=== PATIENT | male | born 1975 | race Caucasian/White ===

== ENCOUNTER 2019-12-26 19:31 | Inpatient (IN) | payer OTHER ==
[~2019-12-26] VITALS: Ht 180.3 cm; Wt 78.0 kg
--- NOTE | 2019-12-26 19:41 | NUR ---
PT BIBRA 38 FROM [facility] TAIWO C/O EPIGASTRIC PAIN X1 DAY W/ "SPITTING BLOOD". +VOMITING. PT AAOX4, VSS,RESPIRATIONS EVEN AND UNLABORED ON RA W/ NAD NOTED. PT CONNECTED TO THE MONITOR AND POX
--- NOTE | 2019-12-26 19:49 | NUR ---
RADIOLOGY AT BEDSIDE
[2019-12-26] MEDS ORDERED: IV NS 0.9% 1,000 ML BAG IV ONE (20:00)
[2019-12-26] MEDS ORDERED: ONDANSETRON HCL/PF 4 MG/2 ML VIAL IV ONE ×2 (20:00→22:30)
[2019-12-26] MEDS ORDERED: ONDANSETRON HCL/PF 4 MG/2 ML VIAL ONE ×2 (20:03→22:11)
--- NOTE | 2019-12-26 20:06 | NUR ---
BLOOD COLLECTED AND SENT TO LAB
[2019-12-26 20:58] LABS: BASOPHILS % (AUTO) 0.6 % (0.0-2.0); EOSINOPHILS % (AUTO) 6.5 % (0.0-6.0); HEMATOCRIT 46 % (39-51); HEMOGLOBIN 15.3 g/dL (13.5-17.5); LYMPHOCYTES # (AUTO) 1.8 /CMM (0.8-4.8); LYMPHOCYTES % (AUTO) 27.8 % (20.0-44.0); MEAN CORPUSCULAR HGB CONC 34 g/dl (31.0-36.0); MEAN CORPUSCULAR VOLUME 101 fL (80-96); MONOCYTES # (AUTO) 1.2 /CMM (0.1-1.30); MONOCYTES % (AUTO) 17.7 % (2.0-12.0); NEUTROPHILS # (AUTO) 3.1 /CMM (1.8-8.9); NEUTROPHILS % (AUTO) 47.4 % (43.0-81.0); PLATELET COUNT (AUTO) 178 /CMM (150-450); RED BLOOD CELL COUNT(AUTO) 4.52 MIL/uL (4.5-6.0); WHITE BLOOD COUNT (AUTO) 6.6 K/uL (4.3-11.0)
[2019-12-26 21:07] LABS: ALBUMIN 3.7 g/dL (3.4-5.0); BILIRUBIN,DIRECT 0.2 mg/dL (0.0-0.2); BILIRUBIN,TOTAL 0.3 mg/dL (0.2-1.0); CALCIUM, SERUM 9.2 mg/dL (8.5-10.1); CREATININE 0.9 mg/dL (0.6-1.3); POTASSIUM 4.1 mmol/L (3.5-5.1); TOTAL PROTEIN, SERUM 7.5 g/dL (6.4-8.2)
--- NOTE | 2019-12-26 21:46 | NUR ---
PT TAKEN TO RADIOLOGY FOR CT
--- NOTE | 2019-12-26 21:47 | NUR ---
PT RETURNED FROM CT
[2019-12-26] MEDS ORDERED: MORPHINE SULFATE INJ 4 MG/ML DISP.SYRIN ONE (22:11)
[2019-12-26] MEDS ORDERED: MORPHINE SULFATE INJ 2 MG/ML DISP.SYRIN IV ONE (22:30)
[2019-12-26 23:21] LABS: EOSINOPHILS % (MANUAL) 7 % (0-4); LYMPHOCYTES % (MANUAL) 28 % (16-48); MONOCYTES % (MANUAL) 14 % (0-11.0); NEUTROPHILS % (MANUAL) 51 (42-76)
[2019-12-26] MEDS ORDERED: PANTOPRAZOLE 40 MG VIAL IV ONE (23:30)
--- NOTE | 2019-12-26 23:37 | NUR ---
COVID SWAB COLLECTED AND SENT TO LAB
[2019-12-27] MEDS ORDERED: MORPHINE SULFATE INJ 4 MG/ML DISP.SYRIN ONE (00:04)
--- NOTE | 2019-12-27 00:10 | NUR ---
CALLED NURSING SUP FOR BED
[2019-12-27] MEDS ORDERED: MORPHINE SULFATE INJ 2 MG/ML DISP.SYRIN IV ONE (00:30)
--- NOTE | 2019-12-27 00:41 | NUR ---
SPOKE WITH DOYLE FROM [employer], VERBAL AUTH FOR PT TO BE ADMITTED TO [facility]
--- NOTE | 2019-12-27 00:43 | NUR ---
ATTEMPTED TO CONTACT DR. DIAMOND (GI NATIONAL ACCOUNT MANAGER) LEFT MESSAGE TO RETURN CALL
--- NOTE | 2019-12-27 01:09 | NUR ---
CALLED [facility] FOR PANEL PAGING AGAIN.
--- NOTE | 2019-12-27 01:10 | NUR ---
ATTEMPTED TO CONTACT DR. DIAMOND FOR CONSULT. LEFT MESSAGE TO RETURN CALL
--- NOTE | 2019-12-27 01:50 | NUR ---
DR. BARBOSA SPEAKING WITH DR. ZENDEJAS REGARDING ADMISSION
[2019-12-27] MEDS ORDERED: OLAN5TAB3 PO (02:22)
[2019-12-27] MEDS ORDERED: MIRT15TA PO (02:23)
[2019-12-27] MEDS ORDERED: SERT100T PO (02:23)
--- NOTE | 2019-12-27 02:37 | NUR ---
REC'D NEG COVID RESULTS. AND SINDI CHEN MADE AWARE
--- NOTE | 2019-12-27 02:40 | NUR ---
BED ASSIGNMENT 321-2
--- NOTE | 2019-12-27 02:46 | NUR ---
REPORT GIVEN TO BLAIR MATIAS FOR RUDDY
--- NOTE | 2019-12-27 03:17 | NUR ---
PT TRANSFERRED TO ROOM IN STABLE CONDITION
[2019-12-27 03:40] VITALS: BP 129/72
[2019-12-27] MEDS ORDERED: ONDANSETRON HCL/PF 4 MG/2 ML VIAL IVP PRN (04:00)
[2019-12-27] MEDS: MORPHINE SULFATE INJ 2 MG/ML DISP.SYRIN IV PRN ×4 (04:36→20:54)
[2019-12-27] MEDS: IV D5/ 0.9% NACL 1,000 ML IV PRN ×2 (04:43→21:04)
--- NOTE | 2019-12-27 04:43 | NUR ---
MS/RN NOTE Patient c/o abdominal pain level 9, aching. Administered PRN dilaudid as ordered. VSS. Will continue to monitor.
[2019-12-27] MEDS ORDERED: Thiamine 100 MG/ML VIAL ONE (05:18)
[2019-12-27] MEDS ORDERED: Folic acid 1 MG/0.2 ML VIAL ONE (05:19)
[2019-12-27] MEDS: Thiamine 100 MG in IV D5W 50 ML IV SCH (05:51)
[2019-12-27 06:29] VITALS: BP 129/72
--- NOTE | 2019-12-27 07:13 | NUR ---
ms echocardiography radiology technologist closing notes pt awake and alert watching tv at this time. pain subside after Morphine given shiv IVP. no N?V noted at this time. IVf still infusing at 125ml/hr on his right upper arm. not in any discomfort at this time. no N/V as well. all due meds given and all needs met. kept him warm and comfortable at all times. will endorse to am nurse for continuity of care. place call light at reach.
--- NOTE | 2019-12-27 07:30 | NUR ---
RN OPENING NOTE Received patient in bed, A/Ox4, ambulatory, denies pain or discomfort at this moment, on room air, SPO2 is 99%, no SOB or distress noted, Bruises bilaterally noted on arms, IV line noted on Right upper arm, intact and patent, running D5NS @ 125 cc/hr, Safety measures in place, call light in reach, bed in lowest position, will cont to monitor
[2019-12-27 08:00] VITALS: BP 108/77
[2019-12-27] MEDS ORDERED: PANTOPRAZOLE 40 MG VIAL IV SCH (09:00)
--- NOTE | 2019-12-27 09:35 | NUR ---
OK to give Zoloft meds per FACING CUTTING MACHINE OPERATOR Sneha
[2019-12-27] MEDS: SERTRALINE HCL 50 MG TABLET PO SCH (09:40)
[2019-12-27] MEDS: Folic acid 1 MG in IV D5W 50 ML IV SCH (09:46)
--- NOTE | 2019-12-27 11:00 | NUR ---
Shasha Hoover at bed site
--- NOTE | 2019-12-27 14:03 | NUR ---
IV line infiltrated,assessed and removed
--- NOTE | 2019-12-27 14:15 | NUR ---
MULTIPLE ATTEMPTS TO START NEW LINE DIDN'T SUCCEED, WILL INFORM HOSPITALIST AND WEB OPERATIONS MANAGER
--- NOTE | 2019-12-27 15:26 | NUR ---
HERB MIDLINE INSERTED G 18, INTACT AND PATENT
--- NOTE | 2019-12-27 15:43 | NUR ---
PATIENT COMPLAINS OF SEVERE PAIN IN UPPER ABDOMINAL AREA /, MOANING, GASPING AIR, WILL ADMINISTER PRN PAIN MED
[2019-12-27 16:00] VITALS: BP 98/61
[2019-12-27] MEDS: MIRTAZAPINE 15 MG TABLET PO SCH (17:31)
[2019-12-27] MEDS: DOCUSATE SODIUM 100 MG CAPSULE PO SCH (17:31)
--- NOTE | 2019-12-27 18:25 | NUR ---
PER DR MARKHAM OK TO HAVE CLEAR LIQUIDS FOR DINNER, NPO AFTER MIDNIGHT
[2019-12-27] MEDS: OLANZAPINE 5 MG TABLET PO SCH (18:30)
--- NOTE | 2019-12-27 19:02 | NUR ---
RN CLOSING NOTES PATIENT REMAINS IN BED, A/OX4, TOLERATING TREATMENT WELL, CURRENTLY ON CLEAR LIQUID DIET, WILL BE NPO AFTER MIDNIGHT, SAFETY MEASURES IN PLACE,BED IN LOWEST POSITION, HOB ELEVATED, CALL LIGHT IN REACH, WILL ENDORSE TO PM RN FOR RUDDY
[2019-12-27 20:00] VITALS: BP 98/56
[2019-12-27] MEDS: PANTOPRAZOLE 40 MG VIAL IV SCH (20:45)
--- NOTE | 2019-12-27 21:14 | NUR ---
MS/RN NOTE Reviewed consent form for procedure and moderate sedation. Signed by patient. Documents placed in chart. Patient c/o of pain level 9 aching and throbbing in the abdomen. Administered PRN dilaudid as ordered. VSS. Will continue to monitor.
--- NOTE | 2019-12-27 22:21 | NUR ---
MS/RN NOTE Patient developed redness and pruritis after 1 completed dose of vancomycin. IV infusion stopped. No SOB or respiratory distress noted. VS: BP 124/80 T98.9 P93 R17 [id number] Dr. Rowell notified. Verbal order received: 1 dose 15mg benadryl and continue vancomycin. Order read back and confirmed by hospitalist. Will continue to monitor. Addendum: 12/27/19 at 2225 by ODIN BELLAMY RN Wrong patient. Please disregard this note.
--- NOTE | 2019-12-27 22:52 | NUR ---
MS/RN OPENING NOTE Patient awake in bed, A/O x4, pleasant. Ambulatory with BRP. Breathing even, clear, unlabored on room air. No signs of acute distress or SOB. Skin warm, pink, dry, appropriate for ethnicity. Bruising noted on RFA from IV insertion, per patient. Abdomen round, soft, non-distended. Bowel sounds normoactive. Patient is NPO for EGD. IV site TONY 22g running D5NS @125 ml/hr. No redness or infiltration. Patient is continent. Bed in low position, wheels locked, side rails up x2, call light within reach.
[2019-12-27 23:41] VITALS: BP 98/56
[2019-12-28] MEDS: MORPHINE SULFATE INJ 2 MG/ML DISP.SYRIN IV PRN ×4 (02:44→21:21)
--- NOTE | 2019-12-28 02:55 | NUR ---
MS/RN NOTE Patient c/o of abdominal pain level 10. Administered PRN dilaudid as ordered. VSS. Will continue to monitor.
[2019-12-28] MEDS: IV D5/ 0.9% NACL 1,000 ML IV PRN ×2 (04:09→16:16)
--- NOTE | 2019-12-28 06:01 | NUR ---
MS/RN CLOSING NOTE Patient asleep in bed, A/O x4, pleasant. Ambulatory. Breathing even, clear, unlabored on room air. No signs of acute distress or SOB. Skin warm, pink, dry, appropriate for ethnicity. Patient is NPO for EGD. Patient void via urinal 1050 ml of clear yellow urine. No bowel movement. IV site TONY 22g running D5NS @125 ml/hr. No redness or infiltration. All medications administered as ordered. Bed in low position, wheels locked, side rails up x2, call light within reach. Will endorse to oncoming nurse
[2019-12-28 07:10] LABS: BASOPHILS # (AUTO) 0.1 /CMM (0.0-0.2); BASOPHILS % (AUTO) 0.9 % (0.0-2.0); EOSINOPHILS % (AUTO) 12.5 % (0.0-6.0); HEMATOCRIT 44 % (39-51); HEMOGLOBIN 14.4 g/dL (13.5-17.5); LYMPHOCYTES # (AUTO) 1.8 /CMM (0.8-4.8); LYMPHOCYTES % (AUTO) 30.2 % (20.0-44.0); MEAN CORPUSCULAR HGB CONC 33 g/dl (31.0-36.0); MEAN CORPUSCULAR VOLUME 101 fL (80-96); MONOCYTES # (AUTO) 0.9 /CMM (0.1-1.30); MONOCYTES % (AUTO) 15.8 % (2.0-12.0); NEUTROPHILS # (AUTO) 2.4 /CMM (1.8-8.9); NEUTROPHILS % (AUTO) 40.6 % (43.0-81.0); PLATELET COUNT (AUTO) 176 /CMM (150-450); RED BLOOD CELL COUNT(AUTO) 4.38 MIL/uL (4.5-6.0)
--- NOTE | 2019-12-28 07:30 | NUR ---
RN OPENING NOTES Received patient ,present in bed, sleeping, A/Ox4, on room air, tolerating well, SPO2 is 98%, report pain in abdominal are 7/10,on room aair, SPO2 is 98%, no SOB or resp distress noted, Med-surg status, NPO diet except meds,patient will undergo an EGD procedure today. Mid-line present on TONY , running D%NS @ 125/hr, intact and patent, patient is tolerating well. Patient is ambulatory to bathroom and using urinal at bed site. Safety measures in place, call .light in reach, bed in lowest position, HOB elevated, will cont to monitor
[2019-12-28 07:51] LABS: THYROID STIMULATING HORMONE 1.052 uIU/mL (0.358-3.74)
[2019-12-28 08:00] VITALS: BP_SYST 130; BP_SYST 81; BP_DIAS 51; BP_DIAS 77
[2019-12-28 08:04] LABS: ALBUMIN 2.9 g/dL (3.4-5.0); BILIRUBIN,TOTAL 0.8 mg/dL (0.2-1.0); CALCIUM, SERUM 7.9 mg/dL (8.5-10.1); CREATININE 0.8 mg/dL (0.6-1.3); MAGNESIUM 2.1 mg/dL (1.8-2.4); PHOSPHORUS 2.6 mg/dL (2.5-4.9); POTASSIUM 3.6 mmol/L (3.5-5.1); TOTAL PROTEIN, SERUM 5.9 g/dL (6.4-8.2)
[2019-12-28] MEDS: Thiamine 100 MG in IV D5W 50 ML IV SCH (08:15)
--- NOTE | 2019-12-28 08:15 | NUR ---
Patient complains of severe abdominal pain, moaning, states his level is 8.5/10, will administer PRN pain mediation
--- NOTE | 2019-12-28 08:20 | NUR ---
Patient BP is 81/51, will hold PRN Morphine
[2019-12-28] MEDS: SERTRALINE HCL 50 MG TABLET PO SCH (08:50)
[2019-12-28] MEDS: PANTOPRAZOLE 40 MG VIAL IV SCH (08:50)
[2019-12-28] MEDS: DOCUSATE SODIUM 100 MG CAPSULE PO SCH ×2 (08:50→16:45)
--- NOTE | 2019-12-28 09:07 | NUR ---
Rechecked BP : 133/71 will administer PRN Pain Med per patient pain level 8.5/10 and continues request
[2019-12-28] MEDS: Folic acid 1 MG in IV D5W 50 ML IV SCH (09:13)
[2019-12-28 09:24] LABS: EOSINOPHILS % (MANUAL) 14 % (0-4); LYMPHOCYTES % (MANUAL) 26 % (16-48); MONOCYTES % (MANUAL) 14 % (0-11.0); NEUTROPHILS % (MANUAL) 46 (42-76)
[2019-12-28] MEDS ORDERED: FAMOTIDINE/PF INJ 20 MG/2 ML VIAL IV ONE (10:49)
--- NOTE | 2019-12-28 10:49 | NUR ---
Patient went to OR for EGD procedure, consent in place, pre op paperwork completed
--- NOTE | 2019-12-28 12:00 | NUR ---
Patient is back from OR, stable, per Dr Bella resume medication and start regular diet
--- NOTE | 2019-12-28 15:31 | NUR ---
Patient complains of severe pain in abdominal area of level 8/10, asking for pain medication, will administer PRN med
[2019-12-28 16:00] VITALS: BP 132/80
--- NOTE | 2019-12-28 16:45 | NUR ---
Patient refused Colace saying its causing "his stool to be very liquid"
--- NOTE | 2019-12-28 17:00 | NUR ---
lab called, find MRSA in pt's nostrils , will notify PHYSICAL THERAPY TECHNICIAN
[2019-12-28] MEDS: MIRTAZAPINE 15 MG TABLET PO SCH (17:45)
[2019-12-28] MEDS: OLANZAPINE 5 MG TABLET PO SCH (17:45)
--- NOTE | 2019-12-28 19:02 | NUR ---
RN CLOSING NOTES PATIENT REMAINS IN BED, A/OX4, TOLERATING TREATMENT WELL, CURRENTLY ON REGULAR DIET, REQUESTED ADDITIONAL SANDWICH, GOOD APPETITE, ALL MEDICATIONS GIVEN, COMFORT NEEDS ATTENDED , SAFETY MEASURES IN PLACE,BED IN LOWEST POSITION, HOB ELEVATED, CALL LIGHT IN REACH, WILL ENDORSE TO PM RN FOR RUDDY
--- NOTE | 2019-12-28 19:25 | NUR ---
RN OPENING NOTES Received patient A/O x4, awake on bed, on RA. No complaints made at this time. Kept on bed clean, dry and comfortable. On fall precautions. Call light within easy reach. Will continue to monitor accordingly.
[2019-12-28 20:00] VITALS: BP 133/78
[2019-12-28] MEDS ORDERED: FAMOTIDINE/PF INJ 20 MG/2 ML VIAL IV SCH (21:00)
[2019-12-28] MEDS: MUPIROCIN OINT 2% 22 GM TUBE NS SCH (21:17)
[2019-12-28] MEDS: ZOLPIDEM TARTRATE 5 MG TABLET PO PRN (22:10)
[2019-12-29] MEDS: IV D5/ 0.9% NACL 1,000 ML IV PRN ×3 (00:52→18:05)
[2019-12-29] MEDS: MORPHINE SULFATE INJ 2 MG/ML DISP.SYRIN IV PRN ×5 (05:30→22:48)
--- NOTE | 2019-12-29 06:35 | NUR ---
RN CLOSING NOTES Pt asleep on bed, on RA. No new complaints made. Medicated for insomnia, noted able to sleep within the shift. Pain managed with PRN medications as ordered. All nursing needs attended, due meds given as ordered. Kept on bed clean, dry and comfortable. Endorsed.
[2019-12-29 06:54] LABS: BASOPHILS # (AUTO) 0.1 /CMM (0.0-0.2); BASOPHILS % (AUTO) 1.4 % (0.0-2.0); EOSINOPHILS % (AUTO) 11.4 % (0.0-6.0); HEMATOCRIT 41 % (39-51); HEMOGLOBIN 13.5 g/dL (13.5-17.5); LYMPHOCYTES # (AUTO) 1.7 /CMM (0.8-4.8); LYMPHOCYTES % (AUTO) 23.9 % (20.0-44.0); MEAN CORPUSCULAR HGB CONC 33 g/dl (31.0-36.0); MEAN CORPUSCULAR VOLUME 102 fL (80-96); MONOCYTES # (AUTO) 1.2 /CMM (0.1-1.30); NEUTROPHILS # (AUTO) 3.3 /CMM (1.8-8.9); NEUTROPHILS % (AUTO) 46.3 % (43.0-81.0); PLATELET COUNT (AUTO) 185 /CMM (150-450); WHITE BLOOD COUNT (AUTO) 7.2 K/uL (4.3-11.0)
[2019-12-29 08:00] VITALS: BP 102/73
--- NOTE | 2019-12-29 08:13 | NUR ---
MS/RN OPENING NOTES RECEIVED PATIENT ON BED. ALERT AND ORIENTED X 4. PATIENT IN NO APPARENT RESPIRATORY DISTRESS NOTED. PATIENT NO COMPLAINED OF PAIN AT THIS TIME. WILL CONTINUE TO MONITOR.
[2019-12-29 08:41] LABS: ALBUMIN 2.7 g/dL (3.4-5.0); BILIRUBIN,TOTAL 0.2 mg/dL (0.2-1.0); CREATININE 0.8 mg/dL (0.6-1.3); POTASSIUM 3.8 mmol/L (3.5-5.1); TOTAL PROTEIN, SERUM 5.7 g/dL (6.4-8.2)
[2019-12-29] MEDS: FAMOTIDINE (20 MG) 20 MG TABLET PO SCH ×3 (09:07→21:02)
[2019-12-29] MEDS: SERTRALINE HCL 50 MG TABLET PO SCH (09:07)
[2019-12-29] MEDS: DOCUSATE SODIUM 100 MG CAPSULE PO SCH ×2 (09:07→17:00)
[2019-12-29] MEDS: THIAMINE HCL 100 MG TABLET PO SCH (09:07)
[2019-12-29] MEDS: FOLIC ACID 1 MG TABLET PO SCH (09:07)
[2019-12-29] MEDS: MUPIROCIN OINT 2% 22 GM TUBE NS SCH ×2 (09:08→21:03)
[2019-12-29] MEDS: CALCIUM CARB 600MG /VIT D 1 EACH TABLET PO SCH (12:44)
[2019-12-29 13:56] LABS: EOSINOPHILS % (MANUAL) 12 % (0-4); LYMPHOCYTES % (MANUAL) 26 % (16-48); MONOCYTES % (MANUAL) 18 % (0-11.0); NEUTROPHILS % (MANUAL) 44 (42-76)
[2019-12-29 16:00] VITALS: BP 121/80
[2019-12-29] MEDS: MIRTAZAPINE 15 MG TABLET PO SCH (17:18)
[2019-12-29] MEDS: SUCRALFATE 1 G/10 ML UDC GT SCH ×3 (17:18→21:08)
[2019-12-29] MEDS: OLANZAPINE 5 MG TABLET PO SCH (17:19)
--- NOTE | 2019-12-29 19:20 | NUR ---
MS/RN CLOSING NOTES PATIENT IS ON BED, ALERT AND ORIENTED X4. PATIENT DENIES PAIN AT THIS TIME. PATIENT IN NO APPARENT RESPIRATORY DISTRESS NOTED. IV ACCESS AT RIGHT UPPER ARM MIDLINE WITH IV FLUID OF D5NS 1L AT 125ML//HR ON AND INFUSING WELL. SEEN AN EXAMINED BY MD WITH ORDERS MADE AND CARRIED OUT. SAFETY PRECAUTIONS WAS IN PLACED. BED IN LOWEST POSITION. SIDE RAILS UP X2. ALL NEEDS WAS ATTENDED. CALL LIGHTS WITHIN REACH. WILL ENDORSED TO LEAD MOBILE DEVELOPER FOR RUDDY.
--- NOTE | 2019-12-29 19:50 | NUR ---
MS RN OPENING NOTES PATIENT RECEIVED RESTING IN BED COMFORTABLY; A/OX4, BREATHING EVEN AND UNLABORED; TOLERATING ROOM AIR WELL; NO SOB NOTED; PATIENT ABLE TO MAKE NEEDS KNOWN; TONY MIDLINE INTACT AND PATENT, INFUSING D5NS @ 125ML/HR; TOLERATING IVF WELL; SAFETY PRECAUTIONS IMPLEMENTED; BED LOCKED IN LOW POSITION; SIDE RAILSX2 CALL LIGHT WITHIN EASY REACH; WILL CONT TO MONITOR
[2019-12-29 20:00] VITALS: BP 114/68
--- NOTE | 2019-12-29 21:08 | NUR ---
MS RN NOTES PATIENT DOES NOT WANT TO TAKE SCHEDULED PEPCID AND SULCRAFATE HE REPORTED TO FELT MORE STOMACH PAIN/HEART BURN; PATIENT EDUCATED ON RISK AND BENEFITS; PATIENT AWARE OF MED COMPLIANCE THROUGHOUT HOSPITAL BUT STILL REFUSING TO TAKE MED; PATIENT REQUESTING SLEEPING PILL SO HE CAN BE ABLE TO SLEEP THROUGHOUT THE NIGHT; WILL CONT TO MONITOR
[2019-12-29] MEDS: ZOLPIDEM TARTRATE 5 MG TABLET PO PRN (21:28)
--- NOTE | 2019-12-29 21:30 | NUR ---
MS RN NOTES PATIENT REQUESTING AMBIEN AND MORPHINE FOR PAIN MANAGEMENT TO BE GIVEN AT THE SAME TIME; PATIENT EDUCATED THAT WE ARE UNABLE TO GIVE MORPHINE AND SLEEPING MEDICATION AT THE SAME TIME; PATIENT AWARE AND REQUESTED AMBIEN TO HELP HIM SLEEP; PATIENT REPORTED 8/10 ABDOMINAL PAIN; IF UNABLE TO SLEEP AND IS STILL IN PAIN, PATIENT IS AWARE HE WILL BE ABLE TO RECEIVE PAIN MEDICATION; WILL CONT TO MONITOR
--- NOTE | 2019-12-29 22:48 | NUR ---
MS RN NOTES PATIENT COMPLAINT OF 9/10 ABDOMINAL PAIN; A/OX4, BREATHING EVEN AND UNLABORED; VITALS STABLE; MORPHINE IV ADMINISTERED PER MD ORDER; WILL CONT TO MONITOR
[2019-12-30] MEDS: MORPHINE SULFATE INJ 2 MG/ML DISP.SYRIN IV PRN ×2 (02:54→08:27)
[2019-12-30] MEDS: IV D5/ 0.9% NACL 1,000 ML IV PRN ×2 (02:58→20:34)
--- NOTE | 2019-12-30 03:00 | NUR ---
MS RN NOTES PATIENT COMPLAINT OF 9/10 ABDOMINAL PAIN; REQUESTING MORPHINE; MORPHINE IV PUSH ADMINISTERED PER MD ORDER; WILL CONT TO MONITOR
[2019-12-30 07:01] LABS: BASOPHILS # (AUTO) 0.1 /CMM (0.0-0.2); BASOPHILS % (AUTO) 2.2 % (0.0-2.0); EOSINOPHILS % (AUTO) 12.3 % (0.0-6.0); HEMATOCRIT 42 % (39-51); LYMPHOCYTES % (AUTO) 30.2 % (20.0-44.0); MEAN CORPUSCULAR HGB CONC 33 g/dl (31.0-36.0); MEAN CORPUSCULAR VOLUME 101 fL (80-96); MONOCYTES % (AUTO) 15.8 % (2.0-12.0); NEUTROPHILS # (AUTO) 2.6 /CMM (1.8-8.9); NEUTROPHILS % (AUTO) 39.5 % (43.0-81.0); PLATELET COUNT (AUTO) 212 /CMM (150-450); RED BLOOD CELL COUNT(AUTO) 4.15 MIL/uL (4.5-6.0); WHITE BLOOD COUNT (AUTO) 6.5 K/uL (4.3-11.0)
--- NOTE | 2019-12-30 07:03 | NUR ---
MS RN CLOSING NOTES PATIENT RESTING IN BED COMFORTABLY; A/OX4, BREATHING EVEN AND UNLABORED; NO SOB NOTED; PATIENT ABLE TO MAKE NEEDS KNOWN; R UA MIDLINE INFUSING D5NS @ 125ML/HR; TOLERATING IVF WELL; NO S/S OF REDNESS OR INFILTRATION NOTED; ALL NEEDS RENDERED; SAFETY PRECAUTIONS IMPLEMENTED; BED LOCKED IN LOW POSITION; SIDE RAILSX2; CALL LIGHT WITHIN REACH; WILL ENDORSE RUDDY TO ONCOMING SHIFT
[2019-12-30 07:18] LABS: ALBUMIN 2.9 g/dL (3.4-5.0); BILIRUBIN,TOTAL 0.2 mg/dL (0.2-1.0); CALCIUM, SERUM 8.1 mg/dL (8.5-10.1); CREATININE 0.9 mg/dL (0.6-1.3); POTASSIUM 3.8 mmol/L (3.5-5.1); TOTAL PROTEIN, SERUM 6.1 g/dL (6.4-8.2)
[2019-12-30] MEDS: SUCRALFATE 1 G/10 ML UDC GT SCH ×4 (07:30→21:01)
[2019-12-30 08:00] VITALS: BP 120/86
--- NOTE | 2019-12-30 08:00 | NUR ---
m/s glass mould cleaner: initial assessment received pt in bed awake, a/ox4. no c/o pain at this time. pt verbalized wanting to go home today before 11 am. awaiting for md sierra and myles, pt aware.
[2019-12-30] MEDS: SERTRALINE HCL 50 MG TABLET PO SCH (08:50)
[2019-12-30] MEDS: FAMOTIDINE (20 MG) 20 MG TABLET PO SCH (08:50)
[2019-12-30] MEDS: FOLIC ACID 1 MG TABLET PO SCH (08:50)
[2019-12-30] MEDS: THIAMINE HCL 100 MG TABLET PO SCH (08:51)
[2019-12-30] MEDS: DOCUSATE SODIUM 100 MG CAPSULE PO SCH ×2 (08:51→16:38)
[2019-12-30] MEDS: CALCIUM CARB 600MG /VIT D 1 EACH TABLET PO SCH (08:51)
[2019-12-30] MEDS: MUPIROCIN OINT 2% 22 GM TUBE NS SCH ×2 (08:53→20:59)
[2019-12-30 09:29] LABS: EOSINOPHILS % (MANUAL) 12 % (0-4); LYMPHOCYTES % (MANUAL) 40 % (16-48); MONOCYTES % (MANUAL) 12 % (0-11.0); NEUTROPHILS % (MANUAL) 36 (42-76)
--- NOTE | 2019-12-30 10:15 | NUR ---
m/s vacuum drum drier operator: md visit seen and examined by dr. greer ([facility]) at this time. pt will call friends and will let us know what his friends decide. pt still wants to go home today. acnp aware.
--- NOTE | 2019-12-30 10:50 | NUR ---
m/s job analyst: notes pt decide to stay and informed me to tell the doctor that she is right. zoey (acnp) made aware. also made aware re: d'c morphine and place order for norco 10/325mg po q4hrs prn. pt agreed with plan of care.
[2019-12-30] MEDS: PANTOPRAZOLE 40 MG TABLET.DR PO SCH ×2 (11:18→20:59)
[2019-12-30] MEDS: HYDROCODONE/APAP 10/325MG TABLET PO PRN ×2 (12:29→16:39)
--- NOTE | 2019-12-30 12:29 | NUR ---
m/s campaign manager: notes c/o 8 abdominal pain, medicated with norco 10/325mg 1 tab po as ordered. instructed to call for assistance. will continue to monitor.
--- NOTE | 2019-12-30 13:29 | NUR ---
m/s awning frame maker: notes pt verbalized still having abdominal pain. will continue to monitor.
--- NOTE | 2019-12-30 14:30 | NUR ---
m/s bowl turner: notes pt still in a lot of pain. zoey (acnp) notified and made aware with new order to give oxycodone ir 5mg po q 6hrs. order read back and carried out and acknowledged.
[2019-12-30] MEDS: oxyCODONE IR immediate release 5 MG PO PRN ×2 (14:43→20:54)
--- NOTE | 2019-12-30 14:43 | NUR ---
m/s senior media planner: notes medicated with oxy ir 5mg po due to c/o 9/10 abdominal pain. instructed to call for assistance. will continue to monitor.
--- NOTE | 2019-12-30 15:43 | NUR ---
m/s music engraver: notes pt verbalize relief of pain, stated, "much better now." instructed to call for assistance. will continue to monitor.
[2019-12-30 16:00] VITALS: BP 121/69
--- NOTE | 2019-12-30 16:39 | NUR ---
m/s surface water technician: notes c/o 8 abdominal pain, medicated with norco 10/325mg 1 tab po as ordered. instructed to call for assistance. will continue to monitor.
[2019-12-30] MEDS: OLANZAPINE 5 MG TABLET PO SCH (17:27)
[2019-12-30] MEDS: MIRTAZAPINE 15 MG TABLET PO SCH (17:28)
--- NOTE | 2019-12-30 17:39 | NUR ---
m/s outplacement consultant: notes pt on the phone at this time. no s/s of discomfort. call light within reach. will continue to monitor.
--- NOTE | 2019-12-30 18:00 | NUR ---
m/s rip and groove machine operator: notes having dinner. no distress noted. needs attended. instructed to call for assistance. will continue to monitor.
--- NOTE | 2019-12-30 19:00 | NUR ---
m/s material carrier: notes report given to ness (yani) for continuity of care.
--- NOTE | 2019-12-30 19:30 | NUR ---
MS/RN OPENING NOTES: RECEIVED REPORT FROM BONIFACIO AGUILAR. PATIENT IS RESTING IN BED COMFORTABLY; A/OX4, VERBALLY RESPONSIVE AND ABLE TO MAKE NEEDS KNOWN, NO SOB NOTED. BREATHING EVEN AND UNLABORED; TOLERATING ROOM AIR WELL. IV ON THE TONY MIDLINE INTACT AND PATENT, INFUSING D5NS @ 125ML/HR. NO C/O PAIN AT THIS TIME. SAFETY PRECAUTIONS ARE IN PLACE. BED IN LOCKED AND LOW POSITION WITH SIDE RAILS UPX2. CALL LIGHT WITHIN EASY REACH; WILL CONTINUE TO MONITOR ACCORDINGLY.
--- NOTE | 2019-12-30 19:50 | NUR ---
MS/RN NOTES: PT REQUESTED TO SHOWER. INFORMED ASSOCIATE MANAGER AFFILIATE MARKETING (DR. PHOEBE ZENDEJAS) AND GOT AN ORDER FOR OKAY TO SHOWER. PT IS INDEPENDENT AND AMBULATORY. WILL MONITOR PATIENT.
[2019-12-30 20:00] VITALS: BP 122/82
--- NOTE | 2019-12-30 22:00 | NUR ---
MS/RN NOTES: PT HAS SCATTERED RASHES ON THE LEFT BICEP, LEFT AND RIGHT FA. NO C/O ITCHYNESS. NO C/O PAIN. PHOTO TAKEN AND DOCUMENTED. DR. PHOEBE TOLENTINO INFORMED. NO NEW ORDERS. WOUND CONSULT PLACED
[2019-12-30] MEDS: ZOLPIDEM TARTRATE 5 MG TABLET PO PRN (22:07)
[2019-12-31] MEDS: SUCRALFATE 1 G/10 ML UDC GT SCH (07:30)
--- NOTE | 2019-12-31 07:39 | NUR ---
MS/RN CLOSING NOTES: PATIENT REMAINS IN BED COMFORTABLY; A/OX4, VERBALLY RESPONSIVE. NO SOB NOTED. BREATHING EVEN AND UNLABORED; TOLERATING ROOM AIR WELL. IV ON THE TONY MIDLINE INTACT AND PATENT, INFUSING D5NS @ 125ML/HR. NO C/O PAIN AT THIS TIME. SAFETY PRECAUTIONS ARE IN KEPT PLACE. BED IN LOCKED AND LOW POSITION WITH SIDE RAILS UPX2. CALL LIGHT WITHIN EASY REACH; ALL DUE MEDS GIVEN ORDERED. ALL NURSING NEEDS MET AND RENDERED. ENDORSED TO DAY SHIFT FOR RUDDY.
[2019-12-31 08:00] VITALS: BP 102/63
[2019-12-31] MEDS: FOLIC ACID 1 MG TABLET PO SCH (08:48)
[2019-12-31] MEDS: THIAMINE HCL 100 MG TABLET PO SCH (08:48)
[2019-12-31] MEDS: CALCIUM CARB 600MG /VIT D 1 EACH TABLET PO SCH (08:48)
[2019-12-31] MEDS: SERTRALINE HCL 50 MG TABLET PO SCH (08:49)
[2019-12-31] MEDS: PANTOPRAZOLE 40 MG TABLET.DR PO SCH (08:49)
[2019-12-31] MEDS: oxyCODONE IR immediate release 5 MG PO PRN ×2 (08:50→11:01)
[2019-12-31] MEDS: DOCUSATE SODIUM 100 MG CAPSULE PO SCH (08:51)
[2019-12-31] MEDS: MUPIROCIN OINT 2% 22 GM TUBE NS SCH (09:00)
[2019-12-31] MEDS ORDERED: SUCR1ORA6 GT (11:05)
[2019-12-31] MEDS ORDERED: OMEP20TA5 PO (11:05)
--- NOTE | 2019-12-31 11:06 | NUR ---
This SW received a call regarding this patient from Film Examiner BLAIR Ku. Per [place], patient is from [facility] and will likely be medically cleared to return to [facility]. Plan: This SW to contact Louie at [facility] to hold a bed for this patient.
--- NOTE | 2019-12-31 11:30 | NUR ---
NURSES NOTES: Discharge notes. Patient provided with discharge paperwork and information regarding prescriptions. Education gone over with patient prior to leaving unit. Went over patient belonging list w/ patient and confirmed all belongings with patient. Patient refused to take new pictures of existing wounds prior to discharge. Midline/IV cath removed. Patient discharged ambulatory w/ DISCOVERY GUIDE escort.
--- NOTE | 2019-12-31 11:40 | NUR ---
SW met with the patient. Per patient, denies SI and HI ideation. Patient does not want to return to [facility]. Patient to return home. Per patient, will make calls to arrange transport but wants to pickle sorter medication prescribed to him first. This SW saw patient walking out of [facility] Med Surg 3 floor with CERTIFIED MIDWIFE at side.
== END 2019-12-31 11:40 | disposition home or self-care (01) | DRG 775 ==
LOC: ER 19:34 → MED 12-27 02:57
PROVIDERS: ADMIT Nurse Practitioner Acute Care; ATTEND Hospitalist
PROC: 0DB68ZX Excision of Stomach, Via Natural or Artificial Opening Endoscopic, Diagnostic (ICD-10-PCS; principal; 2019-12-28)
PROC: 0DB58ZX Excision of Esophagus, Via Natural or Artificial Opening Endoscopic, Diagnostic (ICD-10-PCS; principal; 2019-12-28)
DX: F10.129 Alcohol abuse with intoxication, unspecified (principal); K29.71 Gastritis, unspecified, with bleeding; K57.90 Diverticulosis of intestine, part unspecified, without perforation or abscess without bleeding; K20.9 Esophagitis, unspecified; K85.20 Alcohol induced acute pancreatitis without necrosis or infection; K70.10 Alcoholic hepatitis without ascites; A08.4 Viral intestinal infection, unspecified; E44.0 Moderate protein-calorie malnutrition; F17.210 Nicotine dependence, cigarettes, uncomplicated; F41.9 Anxiety disorder, unspecified; F32.9 Major depressive disorder, single episode, unspecified; K74.60 Unspecified cirrhosis of liver; K56.7 Ileus, unspecified; Y90.8 Blood alcohol level of 240 mg/100 ml or more; K22.6 Gastro-esophageal laceration-hemorrhage syndrome; Z91.19 Patient's noncompliance with other medical treatment and regimen
CPT/HCPCS: 36415; 71045-TC; 76705-TC; 80048-TC; 80053-TC; 80061-TC; 80076-TC; 83690-TC; 83735-TC; 84100-TC; 84443-TC; 84484-TC; 85025-TC; 85730-TC; 87081-TC; C9113; C9803-CS; G0378; J0330; J2270; J2405; J2704; J3411; J3490; J7030; J7042; J7060

== ENCOUNTER 2022-05-29 08:27 | Inpatient (IN) | payer OTHER ==
[~2022-05-29] VITALS: Ht 180.3 cm; Wt 78.0 kg
[~2022-05-29 08:27] MED LIST: MIRT-121 PO; OLAN5TAB3 PO; OMEP20TA5 PO; SERT100T PO; SUCR1ORA6 GT
[2022-05-29] MEDS ORDERED: PANTOPRAZOLE 80 MG in IV NS 0.9% 500 ML IV ONE (09:00)
[2022-05-29] MEDS ORDERED: IV NS 0.9% 1,000 ML IV ONE (09:00)
[2022-05-29] MEDS ORDERED: ONDANSETRON HCL/PF 4 MG/2 ML VIAL IV ONE (09:00)
[2022-05-29 09:12] LABS: BASOPHILS % (AUTO) 1.1 % (0.0-2.0); HEMATOCRIT 46 % (39-51); HEMOGLOBIN 15.6 g/dL (13.5-17.5); LYMPHOCYTES # (AUTO) 1.7 K/uL (0.8-4.8); LYMPHOCYTES % (AUTO) 36.4 % (20.0-44.0); MEAN CORPUSCULAR HGB CONC 34 g/dl (31.0-36.0); MEAN CORPUSCULAR VOLUME 101 fL (80-96); MONOCYTES # (AUTO) 0.6 K/uL (0.1-1.30); MONOCYTES % (AUTO) 14.2 % (2.0-12.0); NEUTROPHILS # (AUTO) 1.7 K/uL (1.8-8.9); NEUTROPHILS % (AUTO) 37.3 % (43.0-81.0); PLATELET COUNT (AUTO) 151 K/uL (150-450); WHITE BLOOD COUNT (AUTO) 4.6 K/uL (4.3-11.0)
[2022-05-29 09:26] LABS: ALBUMIN 3.6 g/dL (3.4-5.0); BILIRUBIN,DIRECT 0.4 mg/dL (0.0-0.2); BILIRUBIN,TOTAL 1.2 mg/dL (0.2-1.0); CALCIUM, SERUM 8.7 mg/dL (8.5-10.1); CREATININE 0.9 mg/dL (0.6-1.3); POTASSIUM 3.7 mmol/L (3.5-5.1); TOTAL PROTEIN, SERUM 7.6 g/dL (6.4-8.2)
[2022-05-29] MEDS ORDERED: ONDANSETRON HCL/PF 4 MG/2 ML VIAL ONE (09:39)
--- NOTE | 2022-05-29 09:43 | NUR ---
MOVE SHEET SUBMITTED.
--- NOTE | 2022-05-29 10:15 | NUR ---
SHAHAB FROM [facility] [phone]
--- NOTE | 2022-05-29 10:18 | NUR ---
WILL ASK FOR A PEER TO PEER.
[2022-05-29] MEDS ORDERED: MORPHINE SULFATE INJ 2 MG/ML DISP.SYRIN ONE ×2 (10:37→14:12)
--- NOTE | 2022-05-29 10:40 | NUR ---
DR. ACUÑA SPEAKING WITH DR. SALAZAR
[2022-05-29] MEDS ORDERED: QUET200T PO (10:45)
[2022-05-29] MEDS ORDERED: TRAZ-182 PO (10:45)
--- NOTE | 2022-05-29 10:58 | NUR ---
[facility] CALLED, PUBLIC ACCOUNTANT PAGED.
[2022-05-29] MEDS ORDERED: MORPHINE SULFATE INJ 2 MG/ML DISP.SYRIN IV ONE ×2 (11:00→13:30)
--- NOTE | 2022-05-29 11:26 | NUR ---
COVID ANTIGEN SPECIMEN COLLECTED AT THIS TIME AND READY FOR PICKUP
[2022-05-29] MEDS ORDERED: ACETAMINOPHEN 325 MG TABLET PO PRN (11:30)
[2022-05-29] MEDS ORDERED: Z GUARD REMEDY 4 OZ OINT TP PRN (11:30)
[2022-05-29] MEDS ORDERED: MAGNESIUM HYDROXIDE 30 ML UDC PO PRN (11:30)
[2022-05-29] MEDS ORDERED: ONDANSETRON HCL/PF 4 MG/2 ML VIAL IVP PRN (11:30)
[2022-05-29] MEDS ORDERED: MAG HYDROX/AL HYDROX/SIMETH 30 ML UDC PO PRN (11:30)
[2022-05-29] MEDS ORDERED: OCTREOTIDE 500 MCG in IV NS 0.9% 99 ML IV PRN (11:30)
--- NOTE | 2022-05-29 11:53 | NUR ---
GOT BED 321-1 RN CAREY
--- NOTE | 2022-05-29 13:15 | NUR ---
REPORT GIVEN TO BLAIR RODRIGUEZ
--- NOTE | 2022-05-29 13:32 | NUR ---
IV removed. Catheter intact and site benign. Pressure and 4x4 applied to site. No bleeding noted.
--- NOTE | 2022-05-29 14:35 | NUR ---
RECEIVED PATIENT VIA GURNEY AT 1435, A/O X4. PATIENT IS BREATHING EVENLY AND UNLABORED ON ROOM AIR. NO SIGNS OF DISTRESS NOTED. VITALS: B/P: 118/72, HR:72, RR:20, T:98.6, SPO2:94.PATIENT COMPLAINS OF PAIN ON LEFT ABDOMEN NO OTHER DISCOMFORT NOTED AT THIS TIME. SKIN ASSESSMENT PERFORMED: MULTIPLE SKIN RASHES ON BILATERAL ARMS, AND BILATERAL UPPER LEGS NO EDEMA PRESENT, PHOTOS TAKEN. BOWEL SOUNDS ACTIVE. PATIENT HAS IV ACCESS ON LEFT HAND (UPPER INDEX FINGER). PATIENT IS HARD TO STICK PER ED. AN ORDER FOR MIDLINE INSERTION WAS PUT IN PLACE AND ON STANDBY.PATIENT WAS ORIENTED TO ROOM AND HOW TO USE THE CALL LIGHT. BELONGINGS ACCOUNTED FOR. SAFETY MEASURES IN PLACE: BED IN LOW, LOCKED POSITION, SIDE RAILS UP X2, CALL LIGHT WITHIN REACH, WILL CONTINUE TO MONITOR THE PATIENT
[2022-05-29] MEDS: MORPHINE SULFATE INJ 2 MG/ML DISP.SYRIN IV PRN (19:57)
[2022-05-29] MEDS: PANTOPRAZOLE 40 MG VIAL IV SCH (20:47)
[2022-05-29] MEDS: TRAZODONE 50 MG TABLET PO SCH (21:23)
[2022-05-29] MEDS: QUETIAPINE FUMARATE 100 MG TABLET PO SCH (21:23)
[2022-05-30] VITALS (9 sets, daily range): BP systolic 96–130; BP diastolic 60–83
--- NOTE | 2022-05-30 06:42 | NUR ---
MS GRADE TEACHER CLOSING NOTES PATIENT RESTING IN BED, A/O X4 AND ABLE TO MAKE NEEDS KNOWN. PT STABLE ON ROOM AIR. BREATHING EVENLY AND UNLABORED. NO SIGNS OF DISTRESS NOTED AT THIS TIME. PATIENT HAS HAD ABDOMINAL PAIN WORSE IN THE LEFT UPPER QUADRANT, MANAGED BY PAIN MEDICATIONS ORDERED. NO OTHER DISCOMFORT NOTED AT THIS TIME. PATIENT HAS IV ACCESS ON LEFT HAND (UPPER INDEX FINGER) C/D/I. SAFETY MEASURES IN PLACE: BED IN LOW, LOCKED POSITION, SIDE RAILS UP X2, CALL LIGHT WITHIN REACH, WILL ENDORSE TO DAY NURSE FOR RUDDY
[2022-05-30 07:17] LABS: CALCIUM, SERUM 8.2 mg/dL (8.5-10.1); CREATININE 0.9 mg/dL (0.6-1.3); MAGNESIUM 1.4 mg/dL (1.8-2.4); PHOSPHORUS 3.2 mg/dL (2.5-4.9); POTASSIUM 3.8 mmol/L (3.5-5.1)
--- NOTE | 2022-05-30 07:20 | NUR ---
BRANCH EMPLOYMENT COORDINATOR OPENING NOTES PATIENT RECEIVED AWAKE IN BED IN NO ACUTE SIGNS OF DISTRESS. A/O X 4. ABLE TO MAKE NEEDS KNOWN, DENIES PAIN OR ANY DISCOMFORTS AT THIS TIME. PT FOR EGD TODAY, NPO MAINTAINED. ON ROOM AIR, TOLERATING WELL, BREATHING EVEN UNLABORED. IV ACCESS ON LEFT HAND #22G, SL, INTACT, PATENT AND FLUSHING WELL. ON EXTERNAL ENVIRONMENTAL STUDIES PROFESSOR WITH CURRENT READING OF NSR, HR 90 BPM, NO C/O CARDIAC DISTRESS VOICED. SAFETY MEASURES IN PLACE: BED IN LOW AND LOCK POSITION, SIDE RAILS UP X2, CALL LIGHT AND TRAY TABLE WITHIN EASY REACH OF PT. WILL CONTINUE TO MONITOR PT ACCORDINGLY.
[2022-05-30 07:40] LABS: BASOPHILS % (AUTO) 0.4 % (0.0-2.0); EOSINOPHILS % (AUTO) 3.1 % (0.0-6.0); HEMATOCRIT 40 % (39-51); HEMOGLOBIN 13.4 g/dL (13.5-17.5); LYMPHOCYTES # (AUTO) 0.9 K/uL (0.8-4.8); LYMPHOCYTES % (AUTO) 20.9 % (20.0-44.0); MEAN CORPUSCULAR HGB CONC 34 g/dl (31.0-36.0); MEAN CORPUSCULAR VOLUME 101 fL (80-96); MONOCYTES # (AUTO) 0.5 K/uL (0.1-1.30); MONOCYTES % (AUTO) 11.5 % (2.0-12.0); NEUTROPHILS # (AUTO) 2.9 K/uL (1.8-8.9); NEUTROPHILS % (AUTO) 64.1 % (43.0-81.0); PLATELET COUNT (AUTO) 90 K/uL (150-450); RED BLOOD CELL COUNT(AUTO) 3.95 MIL/uL (4.5-6.0); WHITE BLOOD COUNT (AUTO) 4.5 K/uL (4.3-11.0)
[2022-05-30] MEDS ORDERED: ANESTHESIA TRAY IN PYXIS 1 EA TRAY MC ONE (08:03)
[2022-05-30] MEDS: PANTOPRAZOLE 40 MG VIAL IV SCH ×2 (08:11→21:31)
[2022-05-30] MEDS ORDERED: CHLORDIAZEPOXIDE HCL 25 MG CAPSULE PO SCH (09:30)
[2022-05-30] MEDS: Magnesium 1GM/D5W 100ML PREMIX 100 ML IV SCH ×4 (09:56→16:13)
--- NOTE | 2022-05-30 10:09 | NUR ---
RN NOTES PT PICKED-UP FOR EGD
--- NOTE | 2022-05-30 11:18 | NUR ---
RN NOTES PT RETURNED TO UNIT AT 1100 AWAKE, A/O X4. S/P EGD BY DR MOTA WITH ORDER TO PUT PATIENT ON REGULAR DIET. V/S TAKEN, STABLE AND RECORDED. WILL CONTINUE TO MONITOR PT.
[2022-05-30] MEDS: MORPHINE SULFATE INJ 2 MG/ML DISP.SYRIN IV PRN ×2 (12:12→17:11)
--- NOTE | 2022-05-30 12:14 | NUR ---
BLAIR NOTES PATIENT C/O STEADY ACHING PAIN ON RIGHT UPPER ABDOMEN, 8/10 SCALE. PRN MORPHINE 2 MG/ML IVP ADMINISTERED AT 1212. WILL CONTINUE TO MONITOR AND REASSESS PT. Addendum: 05/30/22 at 1714 by LADONNA LI RN correction: PAIN IS IN LEFT UPPER QUADRANT NOT RIGHT
[2022-05-30] MEDS ORDERED: CHLORDIAZEPOXIDE HCL 10 MG CAPSULE PO SCH (13:00)
[2022-05-30] MEDS: CHLORDIAZEPOXIDE HCL 5 MG CAPSULE PO SCH ×2 (14:25→21:31)
--- NOTE | 2022-05-30 17:14 | NUR ---
RN NOTES PATIENT C/O ACHING THROBBING PAIN ON LEFT UPPER ABDOMEN, 8/10 SCALE. PRN MORPHINE 2 MG/ML IVP ADMINISTERED AT 1711. WILL CONTINUE TO MONITOR AND REASSESS PT.
--- NOTE | 2022-05-30 18:31 | NUR ---
LAWN SPECIALIST CLOSING NOTES PATIENT IN BED RESTING @ MODERATE HIGH BACKREST POSITION. WATCHING TV AT THIS TIME. A/O X 4. ABLE TO MAKE NEEDS KNOWN. ON ROOM AIR, TOLERATING WELL, BREATHING EVEN UNLABORED, NO ACUTE RESPIRATORY DISTRESS NOTED DURING SHIFT. IV ACCESS ON LEFT HAND #22G, SL, INTACT, PATENT AND FLUSHING WELL. TELE-MONITOR SHOWS CURRENT READING OF NSR, HR 85 BPM, NO C/O CARDIAC DISTRESS VOICED. ALL NEEDS/CARE ATTENDED WELL. SAFETY MEASURES KEPT IN PLACE: BED IN LOWEST LOCKED POSITION, SIDE-RAILS UP X2, CALL LIGHT AND TRAY TABLE WITHIN EASY REACH OF PT. WILL ENDORSE RUDDY TO CROSS CUT SAWYER NURSE.
--- NOTE | 2022-05-30 19:32 | NUR ---
RN OPENING NOTE PATIENT AWAKE IN BED. A/OX4. NO S/S OF DISTRESS, BREATHING WITHOUT DIFFICULTY ON ROOM AIR. L-HAND #22 SL INTACT AND PATENT. TELE READS ST 103. SAFETY MEASURES IN PLACE: BED LOCKED AND AT LOWEST POSITION, MID-FOWLERS, RAILS UP X2, CALL KEENE WITHIN REACH. WILL CONTINUE TO MONITOR PATIENT.
[2022-05-30] MEDS: QUETIAPINE FUMARATE 100 MG TABLET PO SCH (21:31)
[2022-05-30] MEDS: TRAZODONE 50 MG TABLET PO SCH (21:31)
[2022-05-31] MEDS: MORPHINE SULFATE INJ 2 MG/ML DISP.SYRIN IV PRN ×3 (01:38→11:44)
[2022-05-31 04:00] VITALS: BP 106/64
[2022-05-31] MEDS: CHLORDIAZEPOXIDE HCL 5 MG CAPSULE PO SCH (05:42)
--- NOTE | 2022-05-31 06:26 | NUR ---
RN CLOSING NOTE PATIENT ASLEEP IN BED. A/OX4. NO S/S OF DISTRESS, BREATHING WITHOUT DIFFICULTY ON ROOM AIR. L-HAND #22 SL INTACT AND PATENT. TELE READS SR 86. SAFETY MEASURES IN PLACE: BED LOCKED AND AT LOWEST POSITION, MID-FOWLERS, RAILS UP X2, CALL KEENE WITHIN REACH. WILL ENDORSE TO NEXT SHIFT FOR RUDDY.
[2022-05-31 07:05] LABS: BASOPHILS % (AUTO) 0.3 % (0.0-2.0); EOSINOPHILS % (AUTO) 15.3 % (0.0-6.0); HEMATOCRIT 40 % (39-51); HEMOGLOBIN 13.6 g/dL (13.5-17.5); LYMPHOCYTES % (AUTO) 25.4 % (20.0-44.0); MEAN CORPUSCULAR HGB CONC 34 g/dl (31.0-36.0); MEAN CORPUSCULAR VOLUME 100 fL (80-96); MONOCYTES # (AUTO) 0.5 K/uL (0.1-1.30); MONOCYTES % (AUTO) 13.5 % (2.0-12.0); NEUTROPHILS # (AUTO) 1.8 K/uL (1.8-8.9); NEUTROPHILS % (AUTO) 45.5 % (43.0-81.0); PLATELET COUNT (AUTO) 82 K/uL (150-450); RED BLOOD CELL COUNT(AUTO) 4.03 MIL/uL (4.5-6.0); WHITE BLOOD COUNT (AUTO) 3.9 K/uL (4.3-11.0)
[2022-05-31 07:18] LABS: CALCIUM, SERUM 8.5 mg/dL (8.5-10.1); POTASSIUM 3.5 mmol/L (3.5-5.1)
--- NOTE | 2022-05-31 07:30 | NUR ---
MAIL CLERKS SUPERVISOR NOTES PT IN BED, AWAKE, ALERT AND ORIENTED, NO COMPLAINT OF PAIN OR ANY DISCOMFORT, BREATHING PATTERN NORMAL, CALL LIGHT WITHIN REACH, SEEN AND EXAMINED BY DR. SERRANO, DISCHARGE PLAN DISCUSSED WITH PT, VERBALIZED UNDERSTANDING.
[2022-05-31] MEDS: PANTOPRAZOLE 40 MG VIAL IV SCH (08:26)
[2022-05-31 09:04] VITALS: BP 110/76
[2022-05-31] MEDS ORDERED: PANT40TA2 PO (10:11)
[2022-05-31 11:40] VITALS: BP 120/67
[2022-05-31 12:26] LABS: BAND % (MANUAL) 4 % (0.0-5.0); LYMPHOCYTES % (MANUAL) 27 % (16-48); NEUTROPHILS % (MANUAL) 44 (42-76)
[2022-05-31 12:27] LABS: EOSINOPHILS % (MANUAL) 11 % (0-4); MONOCYTES % (MANUAL) 14 % (0-11.0)
[2022-05-31] MEDS ORDERED: CLOTRIMAZOLE 1% 15 GM TUBE TP SCH (13:00)
--- NOTE | 2022-05-31 13:54 | NUR ---
REGIONAL CLIMATE CHANGE ANALYST NOTES PT AWAKE, ALERT AND ORIENTED, NO COMPLAINT OF PAIN, NOT IN DISTRESS, ABLE TO AMBULATE INSIDE HIS ROOM WITH STEADY GAIT, DISCHARGE AND MEDICATION INSTRUCTIONS PROVIDED TO PT, VERBALIZED UNDERSTANDING, DR. SERRANO ORDERED LOTRIMIN CREAM FOR RASHES, BELONGINGS ACCOUNTED FOR, PT STILL HAS RASHES BUT REFUSED PHOTOS TO BE TAKEN, NEW PRESCRIPTION SENT BY MD TO PT'S PREFERRED PHARMACY, ASSISTED TO HOSPITAL LOBBY TO WAIT FOR HIS TRANSPORT, PT IN STABLE CONDITION.
== END 2022-05-31 13:55 | disposition home or self-care (01) | DRG 241 ==
LOC: ER 08:31 → TELE 14:14
PROVIDERS: ADMIT Internal Medicine; ATTEND Internal Medicine
PROC: 0DB68ZX Excision of Stomach, Via Natural or Artificial Opening Endoscopic, Diagnostic (ICD-10-PCS; principal; 2022-05-30)
DX: K25.4 Chronic or unspecified gastric ulcer with hemorrhage (principal); E87.20 Acidosis, unspecified; K76.6 Portal hypertension; K74.60 Unspecified cirrhosis of liver; K70.10 Alcoholic hepatitis without ascites; Y90.7 Blood alcohol level of 200-239 mg/100 ml; K29.70 Gastritis, unspecified, without bleeding; Z20.822 Contact with and (suspected) exposure to COVID-19; Z98.890 Other specified postprocedural states; Z91.041 Radiographic dye allergy status; Z79.899 Other long term (current) drug therapy; E83.42 Hypomagnesemia; Z86.59 Personal history of other mental and behavioral disorders; Z87.19 Personal history of other diseases of the digestive system; F17.200 Nicotine dependence, unspecified, uncomplicated; K75.9 Inflammatory liver disease, unspecified; F10.10 Alcohol abuse, uncomplicated
CPT/HCPCS: 36415; 80048-TC; 80076-TC; 83690-TC; 83735-TC; 84100-TC; 85025-TC; 85730-TC; 86850-TC; 87081-TC; 88305-TC; 88313-TC; 88342; A4223; C9113; C9803; G0378; G0480; J2270; J2405; J2704; J3475; J3490; J7030; J7040

== ENCOUNTER 2023-01-22 07:55 | Emergency (ER) | payer OTHER ==
[~2023-01-22] VITALS: Ht 180.3 cm; Wt 78.0 kg
[~2023-01-22 07:55] MED LIST changes: -MIRT-121 PO; -OLAN5TAB3 PO; -OMEP20TA5 PO; +PANT40TA2 PO; +QUET200T PO; -SERT100T PO; -SUCR1ORA6 GT; +TRAZ-182 PO
[2023-01-22] MEDS ORDERED: FAMOTIDINE/PF INJ 20 MG/2 ML VIAL IV ONE ×2 (09:00→09:06)
[2023-01-22] MEDS ORDERED: IV NS 0.9% 1,000 ML BAG IV ONE (09:00)
[2023-01-22] MEDS ORDERED: MORPHINE SULFATE INJ 2 MG/ML DISP.SYRIN IV ONE (09:00)
[2023-01-22] MEDS ORDERED: MORPHINE SULFATE INJ 2 MG/ML DISP.SYRIN ONE (09:06)
[2023-01-22 09:26] LABS: BASOPHILS % (AUTO) 0.6 % (0.0-2.0); EOSINOPHILS # (AUTO) 0.6 K/uL (0.0-0.7); EOSINOPHILS % (AUTO) 7.4 % (0.0-6.0); HEMATOCRIT 43 % (39-51); HEMOGLOBIN 14.5 g/dL (13.5-17.5); LYMPHOCYTES # (AUTO) 1.2 K/uL (0.8-4.8); LYMPHOCYTES % (AUTO) 16.1 % (20.0-44.0); MEAN CORPUSCULAR HEMOGLOBIN 34 PG (26.0-33.0); MEAN CORPUSCULAR HGB CONC 34 g/dl (31.0-36.0); MEAN CORPUSCULAR VOLUME 103 fL (80-96); MONOCYTES # (AUTO) 1.1 K/uL (0.1-1.30); MONOCYTES % (AUTO) 14.3 % (2.0-12.0); NEUTROPHILS # (AUTO) 4.6 K/uL (1.8-8.9); NEUTROPHILS % (AUTO) 61.6 % (43.0-81.0); PLATELET COUNT (AUTO) 236 K/uL (150-450); RED BLOOD CELL COUNT(AUTO) 4.22 MIL/uL (4.5-6.0); RED CELL DISTRIBUTION WIDTH 15.3 % (11.5-15.0); WHITE BLOOD COUNT (AUTO) 7.4 K/uL (4.3-11.0)
[2023-01-22 09:47] LABS: ALANINE AMINOTRANSFERASE 51 U/L (12-78); ALBUMIN 3.2 g/dL (3.4-5.0); ALKALINE PHOSPHATASE 101 U/L (46-116); ASPARTATE AMINOTRANSFERASE 110 U/L (15-37); BILIRUBIN,DIRECT 0.2 mg/dL (0.0-0.2); BILIRUBIN,TOTAL 0.5 mg/dL (0.2-1.0); CARBON DIOXIDE 22 mmol/L (21-32); CHLORIDE 106 mmol/L (98-107); CREATININE 0.8 mg/dL (0.6-1.3); GLUCOSE 122 mg/dL (74-106); LIPASE 99 U/L (16-77); POTASSIUM 3.6 mmol/L (3.5-5.1); SODIUM SERUM 140 mmol/L (136-145); TOTAL PROTEIN, SERUM 7.3 g/dL (6.4-8.2); UREA NITROGEN, BLOOD 12 mg/dL (7-18)
[2023-01-22 11:42] VITALS: BP 137/66; TEMP 97.9; O2SAT 100
== END 2023-01-22 11:43 | disposition home or self-care (01) ==
LOC: ER 07:55
DX: R10.84 Generalized abdominal pain (principal); Z88.8 Allergy status to other drugs, medicaments and biological substances; Z60.2 Problems related to living alone
CPT/HCPCS: 99285; 96374; 96361; 96375; 93005; 71045; 74176; 85025; 80048; 83690; 80076; 36415; 84484; 80320; J3490; J7030; J2270; G0480